=== PATIENT | male | born 1930 | race Caucasian/White ===

== ENCOUNTER 2019-04-21 11:36 | Day surgery (SDC) | payer OTHER ==
[2019-04-21] MEDS ORDERED: Ringers Lactate 1,000 ML IV ONE (12:20)
[2019-04-21] MEDS ORDERED: BUPIVACA 0.5%/EPI 0.0005%/PF 30 ML VIAL ONE (13:30)
[2019-04-21] MEDS ORDERED: LIDOCAINE 1% W/EPI 1:100,000 MDV 50 ML VIAL ONE (13:31)
[2019-04-21] MEDS ORDERED: BACITRACIN OINTMENT 15 GM TUBE TOP ONE (13:31)
[2019-04-21] MEDS ORDERED: FENTANYL CITR 100 MCG/2 ML ONE (13:33)
[2019-04-21] MEDS ORDERED: LIDOCAINE 2% MPF 5 ML VIAL ONE (13:33)
[2019-04-21] MEDS ORDERED: PROPOFOL 200 MG/20 ML VIAL IV ONE (13:33)
[2019-04-21] MEDS ORDERED: ONDANSETRON 4 MG/2 ML VIAL ONE (13:36)
[2019-04-21] MEDS ORDERED: MINERAL OIL, LITE 10 ML VIAL ONE (13:55)
[2019-04-21] MEDS ORDERED: GLYCOPYRROLATE 0.2 MG/ML SYR ONE (14:17)
[2019-04-21] MEDS ORDERED: EPHEDRINE SULF 50 MG/ML VIAL ONE (14:31)
--- NOTE | 2019-04-21 15:43 | P.BOP ---
Preoperative diagnosis: B cheek skin lesions, scalp lesion Postoperative diagnosis: path pending Primary procedure: WLE with layered closure left cheek 22mm Secondary procedure: WLE with layered closure right cheek 19mm Other procedure(s): WLE scalp mass, 8cm; STSG approx 50sq cm Estimated blood loss: 20ml Specimen: B cheek and scalp mass Anesthesia: General Implants: none Transferred to: Recovery Room Condition: Good
--- NOTE | 2019-04-22 03:03 | OP ---
Date of Procedure: 04/21/2019 Surgeon: Cecilia Tariq MD Preoperative Diagnoses: 1. Large scalp mass. 2. Left cheek lesion, clinically suspicious for basal cell carcinoma. 3. Right cheek lesion, suspicious for basal cell carcinoma. Procedures: 1. Excision left cheek mass, total defect 21 x 18 mm, with layered ( intermediate complexity) closure. 2. Right cheek excision of the skin mass, total defect 19 x 15 mm, closure with layered intermediate complexity. 3. Excision of scalp mass, total size of defect 7.7 x 8 cm. 4. Split-thickness skin graft; donor site right thigh, recipient site right scalp. Total surface area approximately 50 cm2. Indication For Procedure: The patient presented with a large scalp mass, referred by Dr. Floyd for evaluation and excision. Concurrently, the patient had bilateral cheek lesions which were clinically suspicious for basal cell carcinoma. The risks, benefits, and alternatives to the procedures were discussed with the patient who agreed to proceed. Description Of Procedure: The patient was brought to the operating room. He was placed under general anesthesia via laryngeal mask airway. The bilateral cheeks and scalp mass were injected with 0.5% Marcaine with epinephrine via local infiltration. A total of 10 mL was used. The scalp and face were prepped with Betadine and draped in a sterile fashion. The right thigh was prepped with Betadine and likewise draped in a sterile fashion for later skin graft collection. The left cheek was addressed first. The left cheek had a prior existing flap scar with remote history of skin cancer removal in an adjacent area. There was a raised lesion with crusting, clinically suspicious for basal versus squamous cell carcinoma. A gross margin of 5 mm was designed around the lesion. The Bovie electrocautery was used to incise through the skin to the layer of the subcutaneous tissue. The specimen was elevated off the subcutaneous tissues using electrocautery. A suture was placed at the superior most aspect of the specimen, marking 12 o'clock, and was sent to Pathology for permanent section. The surrounding tissues were undermined using Bovie electrocautery and the defect was measured at 21 x 18 mm. A layered closure was required including placement of Vicryl deep sutures to bring the wound edges together. A Burow's triangle was excised to allow for a flatter closure. The area of the defect was closed nicely. The skin was then closed using a running 5-0 fast-absorbing gut. Direct pressure was applied to the wound to aid in hemostasis from the skin edges, and attention was turned to the right cheek. On the lower right cheek, a skin lesion clinically suspicious for basal cell carcinoma was identified. A 5 mm gross margin was designed around the lesion and the Bovie electrocautery was used to incise through the skin and subcutaneous tissue. The specimen was elevated off the underlying subcutaneous tissues. A marking suture was placed at the superior most aspect marking 12 o' clock and the specimen was sent to Pathology for permanent section. The defect of the right cheek measured 15 x 19 mm. The surrounding tissues were undermined using Bovie electrocautery and the defect was closed in a layered fashion using 4-0 Vicryl sutures to bring together the deep aspects of the wound and reduce tension. No skin excision was required due to patient's underlying skin laxity, and the skin was closed in a running fashion with 5-0 fast-absorbing gut. Direct pressure was applied to the wound to aid in hemostasis oozing which was minimal. The bilateral cheek wounds were then dressed with Dermabond to provide superficial closure and reduce need for wound care by the patient. Attention was then turned to the scalp. The right parietal scalp contained a large mass with solid and fluctuant areas without evidence of surrounding cellulitis. There were two small areas of superficial ulceration. With direct pressure on the mass, serous-appearing fluid extravasated from the cystic areas. The nature and diagnosis of the mass were uncertain based on clinical appearance alone. A definitive margin was difficult to assess due to no discrete edge to the mass. The mass was circumferentially excised using Bovie electrocautery with a small margin of uninvolved skin circumferentially. The suture was placed at the anteriormost aspect of the mass for later orientation by Pathology. The Bovie electrocautery was used to incise through the skin and subcutaneous tissue as well as the aponeurosis of the scalp. The plane of loose areolar tissue was then identified and the mass seem to separate from the underlying tissues easily in this plane. It was elevated off. Using Bovie electrocautery, several small blood vessels encountered were clamped and tied or cauterized. The central most portion of the mass seems to come through the aponeurosis layer and small amount was noted centrally within the loose areolar tissue. Due to uncertain behavior but slow growth over at least two-year period , a decision was made to forego extensive resection given the uncertain behavior of the mass. The remainder of the mass elevated easily off the aponeurosis and was sent to Pathology for permanent section only. After obtaining hemostasis and tying off small vessels, the defect of the scalp was measured at 7.7 x 8 cm, ovoid, and decision was made to proceed by reconstruction via split-thickness skin graft. A split thickness skin graft was harvested from the patient's right thigh using the Elidia dermatome with a 3 inch width plate. Skin graft length of approximately 8-1/2 to 9 cm was obtained. The skin graft donor site was injected with 7 mL of 0.5% Marcaine with epinephrine to aid in hemostasis as well as postoperative pain control. Direct pressure was applied to the donor site to aid in hemostasis. Due to the curvature of the patient's thigh, the full 3-inch thickness of the skin graft was not achieved. Due to the width of the skin graft, decision was made to perform mechanical pie crusting. The skin graft was carefully placed on the grooved plate and passed with care through the grid. The pie crusted skin graft was then placed over the scalp defect and secured in an eight-point fashion with 2-0 silk sutures. A bolster was formed of Xeroform gauze and placed snugly over the skin graft and secured with 2-0 silk sutures. The skin graft donor site was then covered with Xeroform and the thigh was wrapped with Kerlix and an Philip bandage. The patient's skin was cleaned and dried, and the patient was returned to care of Anesthesia for awakening and extubation in the operating room, which proceeded without difficulty. Complications: None. Disposition: The patient will be discharged home later today in the care of his friend. Follow up with Dr. Tariq in 10 days for bolster removal. Written wound care instructions for all surgical sites will be given to the patient at the time of discharge. RAMBO/SID Voice ID: [id number] Report ID: [id number] RADHA
== END 2019-04-21 17:20 | disposition home or self-care (01) ==
LOC: OR 11:36
PROVIDERS: ATTEND Otolaryngology
PROC: 0JB10ZZ Excision of Face Subcutaneous Tissue and Fascia, Open Approach (ICD-10-PCS; 2019-04-21)
PROC: 0JB00ZZ Excision of Scalp Subcutaneous Tissue and Fascia, Open Approach (ICD-10-PCS; 2019-04-21)
PROC: 0JB00ZZ Excision of Scalp Subcutaneous Tissue and Fascia, Open Approach (ICD-10-PCS; principal; 2019-04-21 13:30)
DX: C44.42 Squamous cell carcinoma of skin of scalp and neck (principal); C44.319 Basal cell carcinoma of skin of other parts of face
CPT/HCPCS: 11624; 15120; 11644 ×2; 12053; 88305; J2704; J3010; J2405

== ENCOUNTER 2019-06-03 07:59 | Inpatient (IN) | payer OTHER ==
[2019-06-03 09:16] LABS: Absolute Lymphocytes (CBC) 0.5 K/uL (0.7-4.9); Basophils % 0.2 % (0-1.3); Hematocrit 44.1 % (39.6-49.0); Lymphocytes % 8.5 % (15.3-44.8); MPV 8.3 fL (7.6-11.3); RBC Red Blood Cell Count 4.76 M/uL (4.33-5.43)
[2019-06-03 09:17] LABS: Protime INR 1.02
[2019-06-03 09:40] LABS: Albumin 3.3 g/dL (3.4-5.0); Bilirubin Direct 0.2 mg/dL (0-0.2); Bilirubin Total 0.8 mg/dL (0.2-1.0); Magnesium 2.1 mg/dL (1.8-2.4); Potassium 3.6 mmol/L (3.5-5.1); Protein, Total 7.6 g/dL (6.4-8.2); Troponin (Emerg Dept Use Only) 0.09 ng/mL (0.0-0.045)
--- NOTE | 2019-06-03 09:45 | RAD REPORT ---
EXAM DESCRIPTION: RAD - Chest Single View - 06/03/2019 8:37 am CLINICAL HISTORY: Fall, weakness, shortness of breath COMPARISON: November 2016 TECHNIQUE: AP portable chest image was obtained 0830 hours . FINDINGS: Patient has a chronically prominent interstitial pattern. Patchy opacification in the uppe r left lung field is present. Pulmonary contusion is possible if the patient had significant left-reva ed chest trauma. An early left upper lobe pneumonia would be a primary consideration as well. No diff use pulmonary edema. No failure or volume overload. Heart size is upper normal accentuated by rotatio n. Vasculature within normal limits. Trachea is midline. No measurable pleural effusion and no pneumo thorax. No acute bony abnormality seen. No acute aortic findings suspected. IMPRESSION: Patchy left upper lobe opacification most likely representing early pneumonia. Pulmonary contusion is possible for the left upper lobe finding if the patient had significant left-s ided chest trauma.
[2019-06-03 09:57] LABS: Urine Bacteria <20 /HPF (NONE SEEN); Urine Culture Reflex Order NOT NEEDED; Urine RBC >50 /HPF (NONE SEEN)
[2019-06-03 09:58] LABS: Urine Yeast PRESENT (NONE SEEN)
--- NOTE | 2019-06-03 10:50 | RAD REPORT ---
EXAM DESCRIPTION: CT - Head Brain Wo Cont - 06/03/2019 10:39 am CLINICAL HISTORY: AMS Fall, head injury, headache COMPARISON: Head Brain Wo Cont dated 01/11/2019 TECHNIQUE: All CT scans are performed using dose optimization technique as appropriate and may inclu de automated exposure control or mA/KV adjustment according to patient size. FINDINGS: No intracranial hemorrhage, hydrocephalus or extra-axial fluid collection.Mild generalized brain atrophy.No areas of brain edema or evidence of midline shift. The paranasal sinuses and mastoids are clear. The calvarium is intact. IMPRESSION: No acute intracranial abnormality.
--- NOTE | 2019-06-03 10:51 | EDPHYS ---
Physician Documentation [facility] Name: Lars Vogt Age: 88 yrs Sex: Male : 1930 Arrival Date: 06/03/2019 Time: 08:09 Bed 7 Private MD: ED Physician Eric Meadows HPI: 06/03 10:02 This 88 yrs old Male presents to ER via EMS with complaints of Fall Injury. kdr 10:02 Details of fall: The patient fell from a height, Bed. EMS reports that the patient fell kdr out of bed last night and that the family was not able to get him back in bed so he was left there all night. This morning, apparently they were still not able to manage him so EMS was called to bring the patient to the ED. He has no focal c/o and moves all extremities without any apparent discomfort. Historical: - Allergies: 08:36 No Known Allergies; ph - Home Meds: 08:36 lisinopril 40 mg oral tab 1 tab once daily [Active]; amlodipine 5 mg tab 1 tab once ph daily [Active]; carvedilol 3.125 mg oral tab 1 tab 2 times per day [Active]; - PMHx: 08:36 High Cholesterol; Hypertension; PVD; ph - PSHx: 08:36 Appendectomy; Tonsillectomy; ph - Immunization history: Last tetanus immunization: unknown. - Social history:: Smoking status: Patient/guardian denies using tobacco. - Ebola Screening: : No symptoms or risks identified at this time. ROS: 10:02 Constitutional: THe patient is a poor historian and is mildly confused kdr 10:52 Unable to obtain ROS due to The patient is very hard of hearing. Generally responds to kdr questions and follows commands. Exam: 10:52 Constitutional: This is a well developed, well nourished patient who is awake, alert, kdr and in no acute distress. 10:52 Eyes: Pupils equal round and reactive to light, extra-ocular motions intact. Lids and lashes normal. Conjunctiva and sclera are non-icteric and not injected. Cornea within normal limits. Periorbital areas with no swelling, redness, or edema. Neck: Trachea midline, no thyromegaly or masses palpated, and no cervical lymphadenopathy. Supple, full range of motion without nuchal rigidity, or vertebral point tenderness. No Meningismus. Chest/axilla: Normal chest wall appearance and motion. Nontender with no deformity. No lesions are appreciated. Cardiovascular: Regular rate and rhythm with a normal S1 and S2. No gallops, murmurs, or rubs. Normal PMI, no JVD. No pulse deficits. Respiratory: Lungs have equal breath sounds bilaterally, clear to auscultation and percussion. No rales, rhonchi or wheezes noted. No increased work of breathing, no retractions or nasal flaring. Abdomen/GI: Soft, non-tender, with normal bowel sounds. No distension or tympany. No guarding or rebound. No evidence of tenderness throughout. Back: No spinal tenderness. No costovertebral tenderness. Full range of motion. 10:52 Head/face: Exam is negative for obvious evidence of injury or deformity, contusion, deformity, erythema, hematoma, raccoon eyes, tenderness, Noted is The patient has a large skin graft area on the right parietal occiptal area that appears to be well healed. 10:52 Skin: Appearance: Temperature: normal temperature, Moisture: dry, petechiae, not noted, ecchymosis, that are mild, and are scattered, flushing, not noted, diaphoresis is not appreciated. 10:52 Neuro: Orientation: to person, place, Not oriented to time, situation. Vital Signs: 08:15 BP 164 / 95; Pulse 91 LA; Resp 21 S; Temp 97.8(TE); Pulse Ox 96% on R/A; Pain 0/10; jl7 09:25 BP 150 / 90; Pulse 85; Resp 18 S; Pulse Ox 94% on R/A; jl7 10:44 BP 125 / 76; Pulse 76; Resp 16 S; Pulse Ox 94% on R/A; jl7 12:12 BP 135 / 91; Pulse 70; Resp 18; Pulse Ox 95% ; Pain 0/10; jl7 Edyta Coma Score: 08:36 Eye Response: spontaneous(4). Verbal Response: confused(4). Motor Response: obeys ph commands(6). Total: 14. Trauma Score (Adult): 08:36 Eye Response: spontaneous(1); Verbal Response: confused(1); Motor Response: obeys ph commands(2); Systolic BP: > 89 mm Hg(4); Respiratory Rate: 10 to 29 per min(4); Edyta Score: 14; Trauma Score: 12 MDM: 10:50 Patient medically screened. kdr 10:52 Data reviewed: vital signs, nurses notes, old medical records, lab test result(s), kdr radiologic studies. Counseling: I had a detailed discussion with the patient and/or guardian regarding: the historical points, exam findings, and any diagnostic results supporting the discharge/admit diagnosis, lab results, radiology results, the need for further work-up and treatment in the hospital. 06/03 08:16 Order name: Basic Metabolic Panel; Complete Time: 09:49 kdr 06/03 08:16 Order name: CBC with Diff; Complete Time: 09:49 kdr 06/03 08:16 Order name: LFT's; Complete Time: 09:49 kdr 06/03 08:16 Order name: Magnesium; Complete Time: 09:49 kdr 06/03 08:16 Order name: NT PRO-BNP; Complete Time: 09:49 kdr 06/03 08:16 Order name: PT-INR; Complete Time: 09:49 kdr 06/03 08:16 Order name: Troponin (emerg Dept Use Only); Complete Time: 09:49 kdr 06/03 08:16 Order name: XRAY Chest (1 view); Complete Time: 09:49 kdr 06/03 08:16 Order name: CK; Complete Time: 09:49 kdr 06/03 09:28 Order name: Urine Culture jb1 06/03 09:28 Order name: Urine Microscopic Only; Complete Time: 10:06 jb1 06/03 09:34 Order name: Urine Dipstick--Ancillary (enter results) bd 06/03 10:28 Order name: Head Brain Wo Cont; Complete Time: 10:51 EDMS 06/03 10:51 Order name: Blood Culture Adult (2) kdr 06/03 08:16 Order name: EKG; Complete Time: 08:18 kdr 06/03 08:16 Order name: Cardiac monitoring; Complete Time: 08:18 kdr 06/03 08:16 Order name: EKG - Nurse/Tech; Complete Time: 08:18 kdr 06/03 08:16 Order name: IV Saline Lock; Complete Time: 08:28 kdr 06/03 08:16 Order name: Labs collected and sent; Complete Time: 08:50 kdr 06/03 08:16 Order name: O2 Per Protocol; Complete Time: 08:18 kdr 06/03 08:16 Order name: O2 Sat Monitoring; Complete Time: 08:18 kdr 06/03 12:13 Order name: Diet Soft; Complete Time: 12:14 jl7 Administered Medications: 12:00 Drug: Rocephin 1 grams Route: IV; Rate: calculated rate; Site: right forearm; jl7 12:03 Follow up: Response: No adverse reaction; IV Status: Completed infusion jl7 12:05 Not Given (Duplicate Order): Rocephin - (cefTRIAXone) 1 grams IVPB once over 30 mins; jl7 (mix in 50 mL NS) 12:06 Drug: Zithromax 500 mg Route: PO; jl7 12:13 Follow up: Response: No adverse reaction jl7 Disposition: 06/03/19 10:50 Hospitalization ordered by Keya Albarran for Observation. Preliminary diagnosis are Weakness, Pneumonia, unspecified organism. - Bed requested for Telemetry/MedSurg (observation). - Status is Observation. jl7 - Condition is Fair. - Problem is new. - Symptoms have improved. UTI on Admission? No Critical care time excluding procedures: 08:22 Critical care time: Bedside Care: 1 minutes, Consultation: 1 minutes, Family kdr Intervention: 1 minutes. Total time: 3 minutes Signatures: Dispatcher [employer] EDMS Shonna Zhu Kevin, MD MD kdr Hermelinda Sanchez RN RN Dominik Dodd RN RN jl7 Corrections: (The following items were deleted from the chart) 12:31 10:50 Hospitalization Ordered by Keya Albarran MD for Observation. Preliminary bd diagnosis is Weakness; Pneumonia, unspecified organism. Bed requested for Telemetry/MedSurg (observation). Status is Observation. Condition is Fair. Problem is new. Symptoms have improved. UTI on Admission? No. kdr 14:05 12:31 06/03/2019 10:50 Hospitalization Ordered by Keya Albarran MD for Observation. jl7 Preliminary diagnosis is Weakness; Pneumonia, unspecified organism. Bed requested for Telemetry/MedSurg (observation). Status is Observation. Condition is Fair. Problem is new. Symptoms have improved. UTI on Admission? No. bd
--- NOTE | 2019-06-03 10:51 | ER ---
Nurse's Notes [facility] Name: Lars Vogt Age: 88 yrs Sex: Male : 1930 Arrival Date: 06/03/2019 Time: 08:09 Bed 7 Private MD: Diagnosis: Weakness;Pneumonia, unspecified organism Presentation: 06/03 08:10 Presenting complaint: EMS states: Family reports that lost footing last night in bathroom and fell, family attempted to help pt up but was unable to, granddaughter did not call EMS until this morning, pt denies pain, no obvious injuries, possible hx of dementia. Care prior to arrival: None. Mechanism of Injury: Fall from standing position. Trauma event details: Injury occurred in the [facility], Injury occurred: at home. Injury occurred: June 03, 2019. 08:10 Acuity: MARIPOSA 3 ph 08:10 Method Of Arrival: EMS: [facility] 08:36 Transition of care: patient was not received from another setting of care. Onset of ph symptoms was June 03, 2019. Risk Assessment: Do you want to hurt yourself or someone else? Patient reports no desire to harm self or others. Initial Sepsis Screen: Does the patient meet any 2 criteria? No. Patient's initial sepsis screen is negative. Does the patient have a suspected source of infection? No. Patient's initial sepsis screen is negative. Trauma Activation: Not Applicable Physician: ED Physician; Name: ; Notified At: ; Arrived At: Physician: General Surgeon; Name: ; Notified At: ; Arrived At: Physician: Radiology; Name: ; Notified At: ; Arrived At: Physician: Respiratory; Name: ; Notified At: ; Arrived At: Physician: Lab; Name: ; Notified At: ; Arrived At: Historical: - Allergies: 08:36 No Known Allergies; ph - Home Meds: 08:36 lisinopril 40 mg oral tab 1 tab once daily [Active]; amlodipine 5 mg tab 1 tab once ph daily [Active]; carvedilol 3.125 mg oral tab 1 tab 2 times per day [Active]; - PMHx: 08:36 High Cholesterol; Hypertension; PVD; ph - PSHx: 08:36 Appendectomy; Tonsillectomy; ph - Immunization history: Last tetanus immunization: unknown. - Social history:: Smoking status: Patient/guardian denies using tobacco. - Ebola Screening: : No symptoms or risks identified at this time. Screenin:15 Abuse screen: Denies threats or abuse. Denies injuries from another. Tuberculosis jl7 screening: No symptoms or risk factors identified. 08:37 Nutritional screening: No deficits noted. Fall Risk Fall in past 12 months (25 points). ph No secondary diagnosis (0 pts). IV access (20 points). Ambulatory Aid- None/Bed Rest/Nurse Assist (0 pts). Gait- Weak (10 pts.). Mental Status- Overestimates/Forgets Limitations (15 pts.). Total [place] Fall Scale indicates High Risk Score (45 or more points). Fall prevention measures have been instituted. Side Rails Up X 2 Placed Close to Nursing Station Frequent Obs/Assessments Occuring As available patient and family educated on Fall Prevention Program and Strategies. Primary Survey: 08:34 NO uncontrolled hemorrhage observed. A: The patient is alert. Airway: patent, No ph supplemental oxygen in use on arrival. Oral cavity: clear, Trachea midline. Breathing/Chest: Respiratory pattern: regular, Respiratory effort: spontaneous, unlabored. Circulation: Skin color: pink, Skin temperature: warm, dry. Disability Alert. Exposure/Environment: All clothing and personal items were removed. Forensic evidence collection is not deemed to be indicated at this time. Items placed in patient belonging bag. There is no evidence of uncontrolled external bleeding. No obvious injuries are noted at this time. A warming method has been applied: A warm blanket has been provided to the patient. 09:00 Reassessment Breathing/Chest Respiratory pattern Regular Respiratory effort Spontaneous jl7 Unlabored Chest inspection Symmetrical. Secondary Survey: 08:34 HEENT: Head No injury/deformity. Musculoskeletal: No deficits noted. No signs and/or ph symptoms reported regarding the musculoskeletal system. Assessment: 08:32 General: Appears in no apparent distress. comfortable, slender, Behavior is calm, ph cooperative. Pain: Denies pain. Neuro: Level of Consciousness is awake, alert, obeys commands, Oriented to person, place, Speech is normal, Denies weakness dizziness, headache. Cardiovascular: Denies chest pain, nausea, shortness of breath, Capillary refill < 3 seconds in bilateral fingers Patient's skin is warm and dry. Respiratory: Airway is patent Respiratory effort is even, unlabored, Respiratory pattern is regular, symmetrical, Breath sounds with wheezes Denies shortness of breath. GI: No signs and/or symptoms were reported involving the gastrointestinal system. Patient currently denies abdominal pain, nausea. Derm: Skin is fragile, is thin, Skin is pink, warm \T\ dry. Derm: skin graft noted to R top of head, appears to have been harvested from R inner thigh, hx of skin cancer. Musculoskeletal: Circulation, motion, and sensation intact. Range of motion: intact in all extremities. 09:25 Reassessment: Patient appears in no apparent distress at this time. Patient and/or ph family updated on plan of care and expected duration. Pain level reassessed. Pt assisted in using urinal, urine sample obtained, pt now resting comfortably with no complaints. 10:30 Reassessment: Patient appears in no apparent distress at this time. No changes from jl7 previously documented assessment. Patient and/or family updated on plan of care and expected duration. Pain level reassessed. Pt laying in bed, denies discomfort at this time. 11:30 Reassessment: Patient appears in no apparent distress at this time. Patient and/or jl7 family updated on plan of care and expected duration. Pain level reassessed. Patient denies pain at this time. Vital Signs: 08:15 BP 164 / 95; Pulse 91 LA; Resp 21 S; Temp 97.8(TE); Pulse Ox 96% on R/A; Pain 0/10; jl7 09:25 BP 150 / 90; Pulse 85; Resp 18 S; Pulse Ox 94% on R/A; jl7 10:44 BP 125 / 76; Pulse 76; Resp 16 S; Pulse Ox 94% on R/A; jl7 12:12 BP 135 / 91; Pulse 70; Resp 18; Pulse Ox 95% ; Pain 0/10; jl7 Edyta Coma Score: 08:36 Eye Response: spontaneous(4). Verbal Response: confused(4). Motor Response: obeys ph commands(6). Total: 14. Trauma Score (Adult): 08:36 Eye Response: spontaneous(1); Verbal Response: confused(1); Motor Response: obeys ph commands(2); Systolic BP: > 89 mm Hg(4); Respiratory Rate: 10 to 29 per min(4); [place] Score: 14; Trauma Score: 12 ED Course: 08:09 Patient arrived in ED. ph 08:10 Eric Meadows MD is Attending Physician. kdr 08:15 Patient has correct armband on for positive identification. Placed in gown. Bed in low jl7 position. Call light in reach. Side rails up X2. 08:15 Arm band placed on Patient placed in an exam room. ph 08:15 equipment monitor phototypesetting on. Pulse ox on. NIBP on. jl7 08:15 Warm blanket given. jl7 08:15 Patient maintains SpO2 saturation greater than 95% on room air. Thermoregulation: warm jl7 blanket given to patient. 08:21 Triage completed. ph 08:37 XRAY Chest (1 view) In Process Unspecified. EDMS 08:50 Dominik Dodd RN is Primary Nurse. jl7 09:00 Initial lab(s) drawn, by al, sent to lab. Inserted saline lock: 22 gauge in right jl7 forearm, using aseptic technique. Blood collected. 09:30 Urine collected: clean catch specimen, cloudy, tea colored. jb1 10:38 Head Brain Wo Cont In Process Unspecified. EDMS 10:50 Keya Albarran MD is Hospitalizing Provider. kdr 12:15 Diet tray ordered. jl7 12:47 Diet tray given. jl7 14:05 No provider procedures requiring assistance completed. Patient admitted, IV remains in jl7 place. intact, No redness/swelling at site. Administered Medications: 12:00 Drug: Rocephin 1 grams Route: IV; Rate: calculated rate; Site: right forearm; jl7 12:03 Follow up: Response: No adverse reaction; IV Status: Completed infusion jl7 12:05 Not Given (Duplicate Order): Rocephin - (cefTRIAXone) 1 grams IVPB once over 30 mins; jl7 (mix in 50 mL NS) 12:06 Drug: Zithromax 500 mg Route: PO; jl7 12:13 Follow up: Response: No adverse reaction jl7 Intake: 08:36 PO: 0ml; Total: 0ml. ph Output: 08:36 Urine: 0ml; Total: 0ml. ph Outcome: 10:50 Decision to Hospitalize by Provider. kdr 14:04 Admitted to Tele accompanied by tech, via stretcher, with chart, Report called to sonya Ross RN 14:04 Condition: stable 14:04 Discharge instructions given to patient, Instructed on the need for admit, Demonstrated understanding of instructions. 14:05 Patient's length of stay was not longer than 2 hours. jl7 14:05 Patient left the ED. jl7 Signatures: Dispatcher [employer] Aryan Mi jb1 Eric Meadows MD MD kdr Hall, Patricia, RN RN ph Leal, Jahala, RN RN jl7
[2019-06-03] MEDS ORDERED: CEFTRIAXONE/SWI 1gm 1 GM/10 ML SYR ONE (11:04)
[2019-06-03] MEDS ORDERED: AZITHROMYCIN 250 MG TAB ONE (11:04)
[2019-06-03 13:03] LABS: Urine Blood 3+ (NEG); Urine Glucose NEGATIVE (NEG); Urine Protein 2+ (NEG); Urine Specific Gravity >1.030 (1.005-1.030); Urine pH 5.5 (5.0-7.0)
[2019-06-03] MEDS ORDERED: ONDANSETRON 4 MG/2 ML VIAL IV PRN (14:15)
--- NOTE | 2019-06-03 14:27 | EKG ---
Test Date: 2019-06-03 Test Time: 08:11:16 Salt Grinder: TIARRA MEASUREMENT RESULTS: Intervals: Rate: 93 UT: 224 QRSD: 160 QT: 404 QTc: 502 Hagan: P: 63 UT: 224 QRS: -53 T: 112 INTERPRETIVE STATEMENTS: Sinus rhythm with 1st degree AV block Left axis deviation Left bundle branch block Abnormal ECG Compared to ECG 12/12/2016 15:01:27 Sinus bradycardia no longer present Electronically Signed On 06-03-19 14:26:33 CDT by Zaki Chavarria
[2019-06-03] MEDS ORDERED: ENOXAPARIN 40 MG/0.4 ML SQ SCH (15:00)
[2019-06-03] MEDS: NA CHLORIDE 0.9% 1,000 ML IV SCH (15:17)
--- NOTE | 2019-06-03 15:17 | P.HP ---
Certification for Inpatient Patient admitted to: Observation With expected LOS: <2 Midnights Patient will require the following post-hospital care: None Practitioner: I am a practitioner with admitting privileges, knowledge of patient current condition, hospital course, and medical plan of care. Services: Services provided to patient in accordance with Admission requirements found in Title 42 Section 412.3 of the Code of Federal Regulations Patient History Date of Service: 06/03/19 Reason for admission: Fall History of Present Illness: 88 y.o M with PMhx of HTN, HLP who presented to the ED after having a fall at the house. Pt's grand-daughter at bedside stated pt went to the Bathroom and had a fall. He however refused to get help to get up and thus stayed there the whole night. In the morning he was still refusing but the granddaughter called EMS to help him get up and sit on the chair. Pt has been having cough and chills for past couple of days. No other complains. He has been also having blood in his urine per grand-daughter. No other complains. Pt is hard of hearing. Allergies No Known Allergies Allergy (Verified 03/29/19 16:36) Home Medications: Amlodipine [Norvasc] 5 mg PO [id number] 03/29/19 Aspirin [Aspirin EC 81 MG] 81 mg PO DAILY 03/29/19 Carvedilol [Coreg] 3.125 mg PO BID 03/29/19 Lisinopril 40 mg PO [id number] 03/29/19 - Past Medical/Surgical History Has patient received pneumonia vaccine in the past: Yes Diabetic: No -: HTN -: hyperlipidemia -: skin graft - Social History Smoking Status: Never smoker Alcohol use: No CD- Drugs: No Caffeine use: No Place of Residence: Home Review of Systems 10-point ROS is otherwise unremarkable Physical Examination - Vital Signs Temperature: 97.8 F Blood Pressure: 135/91 Pulse: 70 Respirations: 18 - Physical Exam General: Alert, In no apparent distress, Oriented x1, Confused Respiratory: Normal air movement, Crackles/rales Cardiovascular: Regular rate/rhythm, Normal S1 S2 Gastrointestinal: Normal bowel sounds, No tenderness Musculoskeletal: No tenderness Integumentary: No rashes Neurological: Normal gait, Normal speech, Normal strength at 5/5 x4 extr, Normal tone, Normal affect Lymphatics: No axilla or inguinal lymphadenopathy - Studies Laboratory Data (last 24 hrs) 06/03/19 08:38: PT 12.0, INR 1.02 06/03/19 08:38: WBC 6.4, Hgb 15.0, Hct 44.1, Plt Count 188 06/03/19 08:38: Sodium 136, Potassium 3.6, BUN 28 H, Creatinine 1.40 H, Glucose 130 H, Magnesium 2.1, Total Bilirubin 0.8, AST 29, ALT 21, Alkaline Phosphatase 75 Assessment and Plan - Problems (Diagnosis) (1) Fall Current Visit: Yes Status: Acute Plan: S.P Mechanical Fall Last night -PT.OT consulted. Awaiting reccs -Will get Hip xray and Head CT done Qualifiers: Encounter type: initial encounter Qualified Code(s): W19.XXXA - Unspecified fall, initial encounter (2) Altered mental state Current Visit: Yes Status: Acute Plan: Most likely toxic Encephalopathy 2.2 to PNA -Currently AAOx2 -Head CT pending at this time -UA, blood culture collected to r.o any other infection Qualifiers: Altered mental status type: unspecified Qualified Code(s): R41.82 - Altered mental status, unspecified (3) PNA (pneumonia) Current Visit: Yes Status: Acute Plan: Xray with Possible PNA on the LLL -Started on IV zosyn -Sputum Culture pending -Will monitor closely Qualifiers: Pneumonia type: due to unspecified organism Laterality: unspecified laterality Lung location: unspecified part of lung Qualified Code(s): J18.9 - Pneumonia, unspecified organism (4) HTN (hypertension) Current Visit: Yes Status: Chronic Plan: Restart Home medication Qualifiers: Hypertension type: essential hypertension Qualified Code(s): I10 - Essential (primary) hypertension (5) Combined hyperlipidemia Current Visit: Yes Status: Chronic Discharge Plan: Home Plan to discharge in: Greater than 2 days - Advance Directives Does patient have a Living Will: No Does patient have a Durable POA for Healthcare: No
[2019-06-03] MEDS ORDERED: TAMSULOSIN 0.4 MG SR CAP PO ONE (16:00)
[2019-06-03 16:17] VITALS: BMI 28.5
--- NOTE | 2019-06-03 16:51 | RAD REPORT ---
EXAM DESCRIPTION: US - CP - 06/03/2019 4:33 pm CLINICAL HISTORY: Syncope Headache, drowsiness COMPARISON: No comparisons TECHNIQUE: Real-time sonographic evaluation of both carotid systems was performed. Doppler interroga tion was performed with waveform tracing bilaterally. FINDINGS: Normal high resistance waveforms are noted in both external carotid arteries. The common c arotid arteries and internal carotid arteries show normal low resistance waveforms. Mild multifocal hard plaquing is seen in both proximal internal carotid arteries. Peak systolic and e nd diastolic velocity values and the ICA/CCA ratios are in the non-hemodynamically significant range. Antegrade flow seen in both vertebral arteries. IMPRESSION: Mild multifocal hard plaquing is seen in both proximal internal carotid arteries. No evidence of a hemodynamically significant stenosis.
[2019-06-03] MEDS ORDERED: PIPER/TAZO/NS 3.375gm 3.375 GM/100 ML BAG IVPB SCH (17:00)
--- NOTE | 2019-06-03 17:35 | RAD REPORT ---
EXAM DESCRIPTION: RAD - Hip Bilateral With Pelvis - 06/03/2019 5:26 pm CLINICAL HISTORY: fALL Fall, pain COMPARISON: <Comparisons> FINDINGS: Mild osteopenia is seen. Cortical irregularity is seen involving the right femoral head/ne ck junction anteriorly, suspicious for nondisplaced fracture.
[2019-06-04] MEDS: NA CHLORIDE 0.9% 1,000 ML IV SCH ×3 (01:00→21:07)
[2019-06-04 05:35] LABS: Absolute Lymphocytes (CBC) 0.8 K/uL (0.7-4.9); Basophils % 0.2 % (0-1.3); Hematocrit 38.6 % (39.6-49.0); Lymphocytes % 15.2 % (15.3-44.8); RBC Red Blood Cell Count 4.21 M/uL (4.33-5.43)
[2019-06-04 05:55] LABS: Albumin 2.8 g/dL (3.4-5.0); Bilirubin Total 0.4 mg/dL (0.2-1.0); Phosphorus 2.9 mg/dL (2.5-4.9); Potassium 3.1 mmol/L (3.5-5.1); Protein, Total 6.1 g/dL (6.4-8.2)
[2019-06-04] MEDS ORDERED: POTASSIUM 25 MEQ EFFERV TAB PO ONE ×3 (08:00→20:14)
[2019-06-04] MEDS: PANTOPRAZOLE 40MG TABLET PO SCH (08:17)
[2019-06-04] MEDS: CEFTRIAXONE/SWI 1gm 1 GM/10 ML SYR IVP SCH (08:18)
[2019-06-04] MEDS: AZITHROMYCIN IV 500 MG in NA CHLORIDE 0.9% 250 ML IVPB SCH (09:27)
--- NOTE | 2019-06-04 10:06 | OP ---
Surgeon: Zaki Chavarria MD This is an brief summary of an echocardiogram report. The report would not be typed until the regula r work week, but Mr. Vogt's ejection fraction is normal. He has left ventricular hypertrophy, dil ated left atrium and mitral annular calcification. No mitral regurgitation or stenosis. There is a very poor left ventricular compliance, probably due to left ventricular hypertrophy and this will ser ve as a temporary report until the official report is typed. RAMBO/SID Voice ID: [id number] Report ID: [id number]
--- NOTE | 2019-06-04 10:52 | P.PN ---
Subjective Date of Service: 06/04/19 Chief Complaint: Fall Pt seen and examined at bedside. Chart Reviewed. Case DW with family at bedside. Pt this AM much more alert than Before. Doing well overall. No c/o Offer. Review of Systems 10-point ROS is otherwise unremarkable Physical Examination - Vital Signs Temperature: 98.2 F Blood Pressure: 133/67 Pulse: 65 Respirations: 18 Pulse Ox (%): 92 - Physical Exam General: Alert, In no apparent distress HEENT: Atraumatic, PERRLA, EOMI Neck: Supple, JVD not distended Respiratory: Normal air movement, Expiratory wheezes, Inspiratory wheezes Cardiovascular: Regular rate/rhythm, Normal S1 S2 Gastrointestinal: Normal bowel sounds, No tenderness Musculoskeletal: No tenderness Integumentary: No rashes Neurological: Normal speech, Normal tone, Normal affect Lymphatics: No axilla or inguinal lymphadenopathy - Studies Microbiology Data (last 24 hrs): 06/03/19 11:12 Blood - Blood Anaerobic Blood Culture - Final Medications List Reviewed: Yes Assessment And Plan - Current Problems (Diagnosis) (1) Fall Current Visit: Yes Status: Acute Plan: S.P Mechanical Fall -Fall precaution given. -PT.OT consulted. Awaiting reccs -Trauma xray with Possibility of Non-displaced Hip fracture and pulmonary Contusion -Will get CT Thorax, Abd and Pelvis at this time Qualifiers: Encounter type: initial encounter Qualified Code(s): W19.XXXA - Unspecified fall, initial encounter (2) Altered mental state Current Visit: Yes Status: Acute Plan: Most likely toxic Encephalopathy 2.2 to PNA vs UTI -Currently AAOx2. Marked improvement today -Head CT negative for acute abnormality. Chronic Brain Atropy noted. -Urine culture negative, Blood Culture pending. Qualifiers: Altered mental status type: unspecified Qualified Code(s): R41.82 - Altered mental status, unspecified (3) PNA (pneumonia) Current Visit: Yes Status: Acute Plan: Xray with Possible PNA on the LLL -Pt with increase wheezing today. -PRN duonebs today -CT thorax ordered -Continue on IV rocephin and azithromycin Qualifiers: Pneumonia type: due to unspecified organism Laterality: unspecified laterality Lung location: unspecified part of lung Qualified Code(s): J18.9 - Pneumonia, unspecified organism (4) HTN (hypertension) Current Visit: Yes Status: Chronic Plan: Restarted Home medication Qualifiers: Hypertension type: essential hypertension Qualified Code(s): I10 - Essential (primary) hypertension (5) Combined hyperlipidemia Current Visit: Yes Status: Chronic - Plan Pending clinical Improvement Discharge Plan: Home Plan to discharge in: Greater than 2 days - Code Status/Comfort Care Code Status Assessed: Yes Critical Care: No
[2019-06-04] MEDS: LEVALBUTEROL 0.63 MG/3 ML NEB NEB PRN ×2 (11:10→17:40)
[2019-06-04] MEDS: IPRATROPIUM BROM 0.5MG/2.5ML NEB PRN ×2 (11:10→17:40)
--- NOTE | 2019-06-04 15:02 | RAD REPORT ---
EXAM DESCRIPTION: CT - Chest Abd Pelvis Wo Con - 06/04/2019 2:22 pm CLINICAL HISTORY: Chest and abdomen pain. R/O FRACTURE COMPARISON: <Comparisons> TECHNIQUE: A limited noncontrast study was performed. All CT scans are performed using dose optimization technique as appropriate and may include automated exposure control or mA/KV adjustment according to patient size. FINDINGS: Poorly defined reticulonodular infiltrate is present in the left upper lobe likely represe nting pneumonia.A small amount of similar infiltrate is seen in the superior segment right lower lobe medially.No pleural or pericardial effusion.No intrathoracic adenopathy. Limited noncontrast assessment of the liver demonstrates no biliary dilatation or focal lesion. The s pleen, pancreas and adrenal glands are within normal limits. Moderate bilateral hydronephrosis and hy droureter, slightly greater on the left is seen with bilateral renal cysts. There appears to be in a regular masslike lesion along the posterior aspect of the urinary bladder measuring 26 mm in thicknes s resulting in this moderate hydronephrosis bilaterally. Some of this may be related to prostatomegal y however a significant portion appears distinct from the prostate. No bowel obstruction, free air, free fluid or abscess. The appendix is not identified as a discrete s tructure, however, no secondary findings of appendicitis are identified. No pathologic lymphadenopa thy in the abdomen or pelvis. Moderate lower lumbar degenerative changes are noted. A displaced fracture is not evident. IMPRESSION: Reticulonodular infiltrate predominately in the left upper lobe suspicious for pneumonia . Masslike thickening in the posterior aspect of the urinary bladder resulting in moderate bilateral hy droureteronephrosis. Advise direct visualization with cystoscopy.
[2019-06-04] MEDS: CARVEDILOL 3.125 MG TAB PO SCH (21:07)
[2019-06-05] MEDS: AMLODIPINE 5 MG TAB PO SCH (04:51)
[2019-06-05] MEDS: LISINOPRIL 20 MG TAB PO SCH (04:51)
[2019-06-05] MEDS: NA CHLORIDE 0.9% 1,000 ML IV SCH ×2 (04:52→16:38)
[2019-06-05 06:29] LABS: Basophils % 0.2 % (0-1.3); Hematocrit 36.9 % (39.6-49.0); Lymphocytes % 16.8 % (15.3-44.8); MPV 8.2 fL (7.6-11.3); RBC Red Blood Cell Count 4.02 M/uL (4.33-5.43)
[2019-06-05 06:46] LABS: Albumin 2.6 g/dL (3.4-5.0); Bilirubin Total 0.3 mg/dL (0.2-1.0); Phosphorus 1.9 mg/dL (2.5-4.9); Potassium 3.6 mmol/L (3.5-5.1); Protein, Total 5.8 g/dL (6.4-8.2)
[2019-06-05] MEDS ORDERED: POTASSIUM 25 MEQ EFFERV TAB PO ONE (08:00)
[2019-06-05] MEDS: IPRATROPIUM BROM 0.5MG/2.5ML NEB PRN ×2 (08:33→13:27)
[2019-06-05] MEDS: LEVALBUTEROL 0.63 MG/3 ML NEB NEB PRN ×2 (08:33→13:27)
[2019-06-05] MEDS: POTASS/SODIUM PHOSPHATE 1 PKT POWD.PACK PO SCH ×3 (09:09→09:41)
[2019-06-05] MEDS: CARVEDILOL 3.125 MG TAB PO SCH ×2 (09:09→21:07)
[2019-06-05] MEDS: CEFTRIAXONE/SWI 1gm 1 GM/10 ML SYR IVP SCH (09:10)
[2019-06-05] MEDS: PANTOPRAZOLE 40MG TABLET PO SCH (09:10)
[2019-06-05] MEDS: ASPIRIN EC 81 MG TAB PO SCH (09:10)
[2019-06-05] MEDS: AZITHROMYCIN IV 500 MG in NA CHLORIDE 0.9% 250 ML IVPB SCH (09:39)
--- NOTE | 2019-06-05 11:31 | P.PN ---
Subjective Date of Service: 06/05/19 Chief Complaint: Fall Pt seen and examined at bedside. Chart Reviewed. Case DW with family at bedside. Pt this AM much more alert than Before. States that he is worried as "Tia" is not here and she has taken his phone, car and money. He also states she had him in a room with just bathtub and camode, then [employer] came to help him and took him home. Charge nurse told to call APS Review of Systems 10-point ROS is otherwise unremarkable Physical Examination - Vital Signs Temperature: 97.8 F Blood Pressure: 132/72 Pulse: 69 Respirations: 18 Pulse Ox (%): 95 - Physical Exam General: Alert, In no apparent distress, Oriented x2 HEENT: Atraumatic, PERRLA, EOMI Neck: Supple, JVD not distended Respiratory: Clear to auscultation bilaterally, Normal air movement Cardiovascular: Regular rate/rhythm, Normal S1 S2 Gastrointestinal: Normal bowel sounds, No tenderness Musculoskeletal: No tenderness Integumentary: No rashes Neurological: Normal speech, Normal tone, Normal affect Lymphatics: No axilla or inguinal lymphadenopathy - Studies Microbiology Data (last 24 hrs): 06/03/19 09:25 Clean Catch Urine [place] Count - Final <10,000 CFU/ML. 06/03/19 09:25 Clean Catch Urine - Final MIXED ANGELA. 06/03/19 11:12 Blood - Blood Anaerobic Blood Culture - Final Medications List Reviewed: Yes Assessment And Plan - Current Problems (Diagnosis) (1) Fall Current Visit: Yes Status: Acute Plan: S.P Mechanical Fall -Fall precaution given. -PT.OT consulted. reccs Appreciated -Trauma xray with Possibility of Non-displaced Hip fracture and pulmonary Contusion -CT Thorax, Abd and Pelvis done Bladder mass Qualifiers: Encounter type: initial encounter Qualified Code(s): W19.XXXA - Unspecified fall, initial encounter (2) Altered mental state Current Visit: Yes Status: Acute Plan: Most likely toxic Encephalopathy 2.2 to PNA vs UTI -Currently AAOx2. Marked improvement today -Head CT negative for acute abnormality. Chronic Brain Atropy noted. -Urine culture negative, Blood Culture pending. Qualifiers: Altered mental status type: unspecified Qualified Code(s): R41.82 - Altered mental status, unspecified (3) PNA (pneumonia) Current Visit: Yes Status: Acute Plan: Xray with Possible PNA on the LLL -Pt with increase wheezing today. -PRN duonebs today -CT thorax with LLL PNA -Continue on IV rocephin and azithromycin Qualifiers: Pneumonia type: due to unspecified organism Laterality: unspecified laterality Lung location: unspecified part of lung Qualified Code(s): J18.9 - Pneumonia, unspecified organism (4) HTN (hypertension) Current Visit: Yes Status: Chronic Plan: Restarted Home medication Qualifiers: Hypertension type: essential hypertension Qualified Code(s): I10 - Essential (primary) hypertension (5) Combined hyperlipidemia Current Visit: Yes Status: Chronic (6) Bladder mass Current Visit: Yes Status: Acute Plan: Urology consulted. Awaiting reccs - Cunningham Catheter at this time - Plan Pending clinical Improvement. urology consult for bladder mass Discharge Plan: Home Plan to discharge in: Greater than 2 days - Code Status/Comfort Care Code Status Assessed: Yes Critical Care: No
[2019-06-05 18:53] LABS: Phosphorus 2.4 mg/dL (2.5-4.9); Potassium 4.2 mmol/L (3.5-5.1)
[2019-06-06] MEDS: NA CHLORIDE 0.9% 1,000 ML IV SCH ×3 (02:24→21:18)
[2019-06-06] MEDS: AMLODIPINE 5 MG TAB PO SCH (05:31)
[2019-06-06] MEDS: LISINOPRIL 20 MG TAB PO SCH (05:31)
[2019-06-06 06:25] LABS: Bilirubin Total 0.6 mg/dL (0.2-1.0); Phosphorus 2.8 mg/dL (2.5-4.9); Potassium 4.3 mmol/L (3.5-5.1); Protein, Total 6.7 g/dL (6.4-8.2)
[2019-06-06 06:26] LABS: Absolute Lymphocytes (CBC) 1.1 K/uL (0.7-4.9); Basophils % 0.2 % (0-1.3); Hematocrit 40.4 % (39.6-49.0); Lymphocytes % 16.4 % (15.3-44.8); MPV 8.2 fL (7.6-11.3)
--- NOTE | 2019-06-06 06:45 | ECHO ---
HEIGHT: 5 ft 8 in WEIGHT: 188 lb 0 oz DATE OF STUDY: 06/03/[address]: Keya Albarran MD 2-DIMENSIONAL: YES M.MODE: YES DOPPLER: YES COLOR FLOW: YES TDS: YES PORTABLE: DEFINITY: BUBBLE STUDY: DIAGNOSIS: SYNCOPE CARDIAC HISTORY: CATHERIZATION: NO SURGERY: NO PROSTHETIC VALVE: NO PACEMAKER: NO MEASUREMENTS (cm) DIASTOLIC (NORMALS) SYSTOLIC (NORMALS) IVSd 1.4 (0.6-1.2) LA Diam (1.9-4.0) LVEF 60-69% LVIDd 3.9 (3.5-5.7) LVIDs 2.8 (2.0-3.5) %FS 28% LVPWd 1.4 (0.6-1.2) Ao Diam 2.7 (2.0-3.7) 2 DIMENSIONAL ASSESSMENT: RIGHT ATRIUM: NORMAL LEFT ATRIUM: DILATED RIGHT VENTRICLE: NORMAL LEFT VENTRICLE: LEFT VENTRICULAR HYPERTROPHY TRICUSPID VALVE: NORMAL MITRAL VALVE: MITRAL ANNULAR CALCIFICATION PULMONIC VALVE: NORMAL AORTIC VALVE: NORMAL PERICARDIAL EFFUSION: NONE AORTIC ROOT: NORMAL LEFT VENTRICULAR WALL MOTION: NORMAL DOPPLER/COLOR FLOW: IMPAIRED LEFT VENTRICULAR RELAXATION COMMENTS: NORMAL LEFT VENTRICULAR EJECTION FRACTION. LEFT VENTRICULAR HYPERTROPHY. DILATED LEFT ATRIUM. MITRAL ANNULAR CALCIFICATION. IMPAIRED LEFT VENTRICULAR RELAXATION. TECHNOLOGIST: JOHNNIE RODRIGUEZ
--- NOTE | 2019-06-06 10:53 | P.PN ---
Subjective Date of Service: 06/06/19 Chief Complaint: Fall Pt seen and examined at bedside. No family at bedside. Chart Reviewed and case discussed with nursing staff and social work. Patient alert this morning, the continues to have some episodes of confusion. He does not seem to remember why he is here in the hospital this morning. Adult protective Services has been called for this patient, social work on board Review of Systems 10-point ROS is otherwise unremarkable Physical Examination - Vital Signs Temperature: 97.6 F Blood Pressure: 138/80 Pulse: 78 Respirations: 18 Pulse Ox (%): 96 - Physical Exam General: Alert, In no apparent distress, Oriented x2, Confused HEENT: Atraumatic, PERRLA, EOMI Neck: Supple, JVD not distended Respiratory: Clear to auscultation bilaterally, Normal air movement Cardiovascular: Regular rate/rhythm, Normal S1 S2 Gastrointestinal: Normal bowel sounds, No tenderness Musculoskeletal: No tenderness Integumentary: No rashes Neurological: Normal speech, Normal tone, Normal affect Lymphatics: No axilla or inguinal lymphadenopathy - Studies Microbiology Data (last 24 hrs): 06/03/19 09:25 Clean Catch Urine [place] Count - Final <10,000 CFU/ML. 06/03/19 09:25 Clean Catch Urine - Final MIXED ANGELA. Medications List Reviewed: Yes Assessment And Plan - Current Problems (Diagnosis) (1) Fall Current Visit: Yes Status: Acute Plan: S.P Mechanical Fall -Fall precautions. -PT/OT consulted. Recommendations Appreciated -Trauma xray with Possibility of Non-displaced Hip fracture and pulmonary Contusion -CT Thorax, Abd and Pelvis, with done Bladder mass -patient may benefit from further physical therapy/rehab. Rehab consult placed Qualifiers: Encounter type: initial encounter Qualified Code(s): W19.XXXA - Unspecified fall, initial encounter (2) Altered mental state Current Visit: Yes Status: Acute Plan: Improving. -Most likely toxic Encephalopathy 2/2 to PNA vs UTI -Currently AAOx2. Continues to have improvement in mentation but with episodes of confusion still -Head CT negative for acute abnormality. Chronic Brain Atropy noted. -Urine culture negative, Blood Culture no growth for 24 hr, pending Qualifiers: Altered mental status type: unspecified Qualified Code(s): R41.82 - Altered mental status, unspecified (3) PNA (pneumonia) Current Visit: Yes Status: Acute Plan: Xray with Possible PNA on the LLL -PRN duonebs -CT thorax with LLL PNA -Continue on IV rocephin and azithromycin for now. Repeat chest x-ray tomorrow. Will deescalate to oral azithromycin once clinically improved Qualifiers: Pneumonia type: due to unspecified organism Laterality: unspecified laterality Lung location: unspecified part of lung Qualified Code(s): J18.9 - Pneumonia, unspecified organism (4) Bladder mass Current Visit: Yes Status: Acute Plan: Urology consulted. Awaiting recommendations - Cunningham Catheter at this time (5) HTN (hypertension) Current Visit: No Status: Chronic Plan: Continue home medications. - continue to monitor blood pressures and adjust medications as needed Qualifiers: Hypertension type: essential hypertension Qualified Code(s): I10 - Essential (primary) hypertension (6) Combined hyperlipidemia Current Visit: No Status: Chronic - Plan Disposition: Pending clinical improvement, urology recommendations. Inpatient rehab consult placed, pending evaluation.
[2019-06-06] MEDS: PANTOPRAZOLE 40MG TABLET PO SCH (10:57)
[2019-06-06] MEDS: ASPIRIN EC 81 MG TAB PO SCH (10:57)
[2019-06-06] MEDS: CEFTRIAXONE/SWI 1gm 1 GM/10 ML SYR IVP SCH (10:58)
[2019-06-06] MEDS: CARVEDILOL 3.125 MG TAB PO SCH ×2 (10:58→21:18)
[2019-06-06] MEDS: AZITHROMYCIN IV 500 MG in NA CHLORIDE 0.9% 250 ML IVPB SCH (10:59)
--- NOTE | 2019-06-06 16:36 | CON ---
History Of Present Illness: An 88-year-old gentleman who has a history of squamous cell cancer, basal cell cancer, apparently squamous cell cancers invasive , positive margins, just had a huge operation by ENT with skin graft and is possible scheduled for 6 months' radiation with poor prognosis, possible 6 months to live. I was called because he had a bladder mass that was seen in the bladder. The patient says he has been having some gross hematuria for 2 years now. It is a huge mass in the bladder that is causing compression or invasion, most likely muscle invasive of the bladder, causing bilateral hydroureteronephrosis. This carries a poor prognosis at his age. Debate is whether it is even marie to do a biopsy knowing that what is going on already and with his poor prognosis from squamous cell cancer and his poor prognosis from muscle invasive bladder cancer, the most likely recommendation for this gentleman is hospice. I do not believe there is anyone in the [place] area that will do a radical cystoprostatectomy and ileal conduit on this patient. I do not believe he will make it out of the hospital. I think the best thing for him now is comfort measures. Allergies: NO KNOWN DRUG ALLERGIES. Home Medication: Amlodipine, aspirin, carvedilol, lisinopril. Past Medical History: Hypertension, hyperlipidemia, skin graft, squamous cell cancer, basal cell cancer. Social History: He smoked in the past. Alcohol, none. No caffeine. Resides at home with Beti who takes care of him, Brittney has the power of business attorney; she lives out of critical access hospital. Review of Systems: Ten-point review of systems otherwise unremarkable. Patient is a poor historian. Physical Examination: Vital Signs: Afebrile, stable. General: Alert, oriented x1. Seems to have some dementia. Respiratory: Clear. Cardiovascular: S1, S2. Gastrointestinal: Soft. Musculoskeletal: No tenderness. Skin: No rashes. Neurologic: Normal gait. Lymphatics: No lymphadenopathy. Laboratory Data: Laboratory reviewed. His GFR is now 77; when he came in, it was 48, it can be due to some hydration. White count normal. UA did show some blood in the urine. Assessment And Plan: Patient status post fall. Reason for admission is status post recent skin resection from the head for squamous cell cancer that was possibly invasive with poor prognosis. Also, he is status post some gross hematuria and CAT scan revealed bladder mass with bilateral hydroureteronephrosis, very highly suggestive of muscle invasive bladder cancer. The option for muscle invasive bladder cancer is radical cystectomy with urinary diversion or chemo on radiation. However, in this gentleman at his age and medical problems and other types of cancers, I believe the best thing for him is hospice. That is my recommendation. Thank you very much. KELSI/SID Voice ID: [id number] Report ID: [id number] RADHA
[2019-06-07] MEDS: AMLODIPINE 5 MG TAB PO SCH (05:27)
[2019-06-07] MEDS: LISINOPRIL 20 MG TAB PO SCH (05:27)
[2019-06-07] MEDS: PANTOPRAZOLE 40MG TABLET PO SCH (05:28)
[2019-06-07] MEDS: NA CHLORIDE 0.9% 1,000 ML IV SCH ×3 (05:35→18:13)
[2019-06-07 06:35] LABS: Basophils % 0.3 % (0-1.3); Hematocrit 37.8 % (39.6-49.0); MPV 8.3 fL (7.6-11.3); RBC Red Blood Cell Count 4.09 M/uL (4.33-5.43)
[2019-06-07 06:46] LABS: Albumin 2.7 g/dL (3.4-5.0); Bilirubin Total 0.6 mg/dL (0.2-1.0); Phosphorus 2.6 mg/dL (2.5-4.9); Potassium 4.4 mmol/L (3.5-5.1); Protein, Total 6.2 g/dL (6.4-8.2)
[2019-06-07] MEDS: CEFTRIAXONE/SWI 1gm 1 GM/10 ML SYR IVP SCH (08:19)
[2019-06-07] MEDS: ASPIRIN EC 81 MG TAB PO SCH (08:19)
[2019-06-07] MEDS: CARVEDILOL 3.125 MG TAB PO SCH ×2 (08:19→20:46)
[2019-06-07] MEDS: FLUCONAZOLE 100 MG TAB PO SCH (08:19)
[2019-06-07] MEDS: AZITHROMYCIN IV 500 MG in NA CHLORIDE 0.9% 250 ML IVPB SCH (09:19)
[2019-06-07] MEDS ORDERED: LEVALBUTEROL 0.63 MG/3 ML NEB NEB SCH (12:00)
[2019-06-07] MEDS ORDERED: IPRATROPIUM BROM 0.5MG/2.5ML NEB SCH (12:00)
--- NOTE | 2019-06-07 12:33 | P.PN ---
Subjective Date of Service: 06/07/19 Chief Complaint: Fall Subjective: Improving Pt seen and examined at bedside. No family at bedside. Chart Reviewed and case discussed with nursing staff and social work. Patient alert and awake, oriented x3 this morning. Adult protective Services has been called for this patient, social work on board Review of Systems 10-point ROS is otherwise unremarkable Physical Examination - Vital Signs Temperature: 97.3 F Blood Pressure: 117/65 Pulse: 63 Respirations: 17 Pulse Ox (%): 98 - Physical Exam General: Alert, In no apparent distress, Oriented x3 HEENT: Atraumatic, PERRLA, EOMI Neck: Supple, JVD not distended Respiratory: Clear to auscultation bilaterally, Normal air movement Cardiovascular: Regular rate/rhythm, Normal S1 S2 Gastrointestinal: Normal bowel sounds, No tenderness Musculoskeletal: No tenderness Integumentary: No rashes Neurological: Normal speech, Normal tone, Normal affect Lymphatics: No axilla or inguinal lymphadenopathy - Studies Medications List Reviewed: Yes Assessment And Plan - Current Problems (Diagnosis) (1) Fall Current Visit: Yes Status: Acute Plan: S.P Mechanical Fall -Fall precautions. -PT/OT consulted. Recommendations Appreciated -Trauma xray with Possibility of Non-displaced Hip fracture and pulmonary Contusion -CT Thorax, Abd and Pelvis, with done Bladder mass -patient may benefit from further physical therapy/rehab. Rehab consult placed , which was denied. Social work on board, assisted facility referral placed. Qualifiers: Encounter type: initial encounter Qualified Code(s): W19.XXXA - Unspecified fall, initial encounter (2) Altered mental state Current Visit: Yes Status: Acute Plan: Improving. -Most likely toxic Encephalopathy 2/2 to PNA vs UTI -Currently AAOx3. -Head CT negative for acute abnormality. Chronic Brain Atropy noted. -Urine culture negative, Blood Culture no growth for 24 hr, pending Qualifiers: Altered mental status type: unspecified Qualified Code(s): R41.82 - Altered mental status, unspecified (3) PNA (pneumonia) Current Visit: Yes Status: Acute Plan: Xray with Possible PNA on the LLL -PRN duonebs -CT thorax with LLL PNA -Continue on IV rocephin and azithromycin for now. Repeat chest x-ray tomorrow. Will deescalate to oral azithromycin once clinically improved Qualifiers: Pneumonia type: due to unspecified organism Laterality: unspecified laterality Lung location: unspecified part of lung Qualified Code(s): J18.9 - Pneumonia, unspecified organism (4) Bladder mass Current Visit: Yes Status: Acute Plan: Urology consulted. Recommendations appreciated. Mass highly suggestive of muscle invasive bladder cancer. Hot over this patient is a poor candidate for any surgical or chemo/radiation treatment due to his change and underlying medical problems. I did discuss with patient, unsure if he understands the information. Working on getting medical [id number] paperwork to discuss further. - Cunningham Catheter at this time (5) HTN (hypertension) Current Visit: No Status: Chronic Plan: Continue home medications. - continue to monitor blood pressures and adjust medications as needed Qualifiers: Hypertension type: essential hypertension Qualified Code(s): I10 - Essential (primary) hypertension (6) Combined hyperlipidemia Current Visit: No Status: Chronic - Plan Disposition: Pending clinical improvement. Pending assisted facility placement. Discharge Plan: [facility]
[2019-06-07] MEDS: LEVALBUTEROL 0.63 MG/3 ML NEB NEB SCH ×2 (13:15→19:40)
[2019-06-07] MEDS: IPRATROPIUM BROM 0.5MG/2.5ML NEB SCH ×2 (13:15→19:40)
--- NOTE | 2019-06-07 14:16 | PN ---
Subjective: Patient is stable, status post fall. He has squamous cell carcinoma with positive yunier ns in his scalp for possible radiation and poor prognosis. He also has a bladder mass that is causin g bilateral hydroureteronephrosis, most likely muscle-invasive TCC. I came by the room today to meet Tia who was supposed to meet me this morning; I came by twice, she was not there, to discuss any fur ther expectations. The plan for this patient is hospice care due to his age, medical condition, and diagnosis of tumors. KELSI/SID Voice ID: [id number] Report ID: [id number]
[2019-06-08] MEDS: IPRATROPIUM BROM 0.5MG/2.5ML NEB SCH ×4 (01:35→21:50)
[2019-06-08] MEDS: LEVALBUTEROL 0.63 MG/3 ML NEB NEB SCH ×4 (01:35→20:00)
[2019-06-08] MEDS: NA CHLORIDE 0.9% 1,000 ML IV SCH (04:15)
[2019-06-08] MEDS: AMLODIPINE 5 MG TAB PO SCH (05:22)
[2019-06-08] MEDS: LISINOPRIL 20 MG TAB PO SCH (05:23)
[2019-06-08] MEDS: PANTOPRAZOLE 40MG TABLET PO SCH (05:23)
[2019-06-08 07:05] LABS: Absolute Lymphocytes (CBC) 1.1 K/uL (0.7-4.9); Basophils % 0.6 % (0-1.3); Hematocrit 39.3 % (39.6-49.0); Lymphocytes % 14.6 % (15.3-44.8); MPV 8.7 fL (7.6-11.3); RBC Red Blood Cell Count 4.31 M/uL (4.33-5.43)
[2019-06-08 07:36] LABS: Bilirubin Total 0.6 mg/dL (0.2-1.0); Magnesium 2.1 mg/dL (1.8-2.4); Phosphorus 2.3 mg/dL (2.5-4.9); Potassium 3.9 mmol/L (3.5-5.1); Protein, Total 6.9 g/dL (6.4-8.2)
[2019-06-08] MEDS: FLUCONAZOLE 100 MG TAB PO SCH (09:19)
[2019-06-08] MEDS: CEFTRIAXONE/SWI 1gm 1 GM/10 ML SYR IVP SCH (09:19)
[2019-06-08] MEDS: ASPIRIN EC 81 MG TAB PO SCH (09:19)
[2019-06-08] MEDS: CARVEDILOL 3.125 MG TAB PO SCH ×2 (09:20→21:03)
[2019-06-08] MEDS: POTASS/SODIUM PHOSPHATE 1 PKT POWD.PACK PO SCH ×3 (09:21→12:35)
[2019-06-08] MEDS: AZITHROMYCIN IV 500 MG in NA CHLORIDE 0.9% 250 ML IVPB SCH (09:55)
[2019-06-08] MEDS ORDERED: TRAMADOL HCL 50 MG TAB PO PRN (12:18)
--- NOTE | 2019-06-08 12:18 | P.PN ---
Subjective Date of Service: 06/08/19 Chief Complaint: Fall Subjective: Improving Pt seen and examined at bedside. Chart Reviewed and case discussed with nursing staff and social work. Great granddaughter at bedside. Patient alert and awake, oriented x3 this morning. Continues to have episodes of confusion. Adult protective Services has been called for this patient, social work on board Review of Systems 10-point ROS is otherwise unremarkable Physical Examination - Vital Signs Temperature: 97.7 F Blood Pressure: 166/89 Pulse: 87 Respirations: 18 Pulse Ox (%): 96 - Physical Exam General: Alert, In no apparent distress, Oriented x3 HEENT: Atraumatic, PERRLA, EOMI Neck: Supple, JVD not distended Respiratory: Clear to auscultation bilaterally, Normal air movement Cardiovascular: Regular rate/rhythm, Normal S1 S2 Gastrointestinal: Normal bowel sounds, No tenderness Musculoskeletal: No tenderness Integumentary: No rashes Neurological: Normal speech, Normal tone, Normal affect Lymphatics: No axilla or inguinal lymphadenopathy - Studies Microbiology Data (last 24 hrs): 06/03/19 11:28 Blood - Blood Aerobic Blood Culture - Final No growth in 5 days. 06/03/19 11:28 Blood - Blood Anaerobic Blood Culture - Final No growth in 5 days. 06/03/19 11:12 Blood - Blood Aerobic Blood Culture - Final No growth in 5 days. 06/03/19 11:12 Blood - Blood Anaerobic Blood Culture - Final Medications List Reviewed: Yes Assessment And Plan - Current Problems (Diagnosis) (1) Fall Current Visit: Yes Status: Acute Plan: S.P Mechanical Fall -Fall precautions. -PT/OT consulted. Recommendations Appreciated -Trauma xray with Possibility of Non-displaced Hip fracture and pulmonary Contusion -CT Thorax, Abd and Pelvis, with done Bladder mass -patient may benefit from further physical therapy/rehab. Rehab consult placed , which was denied. Social work on board, long term facility referral placed. Patient currently refusing long term facility. -potential hospice, social work aware Qualifiers: Encounter type: initial encounter Qualified Code(s): W19.XXXA - Unspecified fall, initial encounter (2) Altered mental state Current Visit: Yes Status: Acute Plan: Mentation seems to be back to baseline. -Most likely toxic Encephalopathy 2/2 to PNA vs UTI -Currently AAOx3. -Head CT negative for acute abnormality. Chronic Brain Atrophy noted. -Urine culture negative, Blood Culture no growth for 24 hr, pending Qualifiers: Altered mental status type: unspecified Qualified Code(s): R41.82 - Altered mental status, unspecified (3) PNA (pneumonia) Current Visit: Yes Status: Acute Plan: Xray with Possible PNA on the LLL -PRN duonebs -CT thorax with LLL PNA -converted IV antibiotics to oral azithromycin. He will complete a 10 day course Qualifiers: Pneumonia type: due to unspecified organism Laterality: unspecified laterality Lung location: unspecified part of lung Qualified Code(s): J18.9 - Pneumonia, unspecified organism (4) Bladder mass Current Visit: Yes Status: Acute Plan: Urology consulted. Recommendations appreciated. Mass highly suggestive of muscle invasive bladder cancer. This patient is a poor candidate for any surgical or chemo/radiation treatment due to his age and underlying medical problems. I did discuss with patient, unsure if he understands the information. Hospice discussion today with patient, great-granddaughter at bedside. Social work on board, pending hospice evaluation - Cunningham Catheter at this time (5) HTN (hypertension) Current Visit: No Status: Chronic Plan: Continue home medications. - continue to monitor blood pressures and adjust medications as needed Qualifiers: Hypertension type: essential hypertension Qualified Code(s): I10 - Essential (primary) hypertension (6) Combined hyperlipidemia Current Visit: No Status: Chronic - Plan Disposition: Pending clinical improvement. Pending hospice evaluation and set up. Potential discharge on hospice home in the next 24 hr if family agrees and everything set up
[2019-06-08] MEDS: TAMSULOSIN 0.4 MG SR CAP PO SCH (14:13)
--- NOTE | 2019-06-08 18:26 | PN ---
An 88-year-old gentleman with invasive squamous cell carcinoma of the scalp and most likely muscle invasive bladder tumor with bilateral obstruction as the most likely diagnosis came by. Granddaughter, Hyun, who is a friend, she did not show up yesterday morning between 8 and 12. Today, I was text by the office that she is here. She wants to meet. I told them I would be here during lunchtime. When I came here during my lunchtime and heard that she left upset, we have called her and left messages to see if she wants to talk some more, but my plan has not changed for this patient, still the same. He will be a good hospice candidate. While I was leaving Tia showed up. She had no questions and no other concerns. She understands the prognosis. KELSI/SID Voice ID: [id number] Report ID: [id number] RADHA
[2019-06-09] MEDS: LEVALBUTEROL 0.63 MG/3 ML NEB NEB SCH ×2 (01:50→09:05)
[2019-06-09] MEDS: IPRATROPIUM BROM 0.5MG/2.5ML NEB SCH ×2 (01:50→09:05)
[2019-06-09 05:16] VITALS: O2SAT 94
[2019-06-09 05:58] LABS: Potassium 3.7 mmol/L (3.5-5.1)
[2019-06-09] MEDS: AMLODIPINE 5 MG TAB PO SCH (06:25)
[2019-06-09] MEDS: LISINOPRIL 20 MG TAB PO SCH (06:26)
[2019-06-09] MEDS: CARVEDILOL 3.125 MG TAB PO SCH (08:07)
[2019-06-09] MEDS: PANTOPRAZOLE 40MG TABLET PO SCH (08:07)
[2019-06-09] MEDS: ASPIRIN EC 81 MG TAB PO SCH (08:08)
[2019-06-09] MEDS: TAMSULOSIN 0.4 MG SR CAP PO SCH (08:08)
[2019-06-09] MEDS ORDERED: AZITHROMYCIN 250 MG TAB PO SCH (09:00)
[2019-06-09] MEDS ORDERED: POTASSIUM CL SA 10 MEQ TAB PO ONE (09:00)
[2019-06-09 14:07] VITALS: BP 121/68; TEMP 98
--- NOTE | 2019-06-09 15:46 | P.DS ---
Admission Date: 06/04/19 Discharge Date: 06/09/19 Disposition: HOSPICE-HOME Discharge Condition: FAIR Reason for Admission: Fall Consultations: Dr. Gallegos - Problems (1) Fall Status: Acute Qualifiers: Encounter type: initial encounter Qualified Code(s): W19.XXXA - Unspecified fall, initial encounter (2) Altered mental state Status: Acute Qualifiers: Altered mental status type: unspecified Qualified Code(s): R41.82 - Altered mental status, unspecified (3) PNA (pneumonia) Status: Acute Qualifiers: Pneumonia type: due to unspecified organism Laterality: unspecified laterality Lung location: unspecified part of lung Qualified Code(s): J18.9 - Pneumonia, unspecified organism (4) Bladder mass Status: Acute (5) HTN (hypertension) Status: Chronic Qualifiers: Hypertension type: essential hypertension Qualified Code(s): I10 - Essential (primary) hypertension (6) Combined hyperlipidemia Status: Chronic Brief History of Present Illness: 88 y.o M with PMhx of HTN, HLP who presented to the ED after having a fall at the house. Pt's grand-daughter at bedside stated pt went to the Bathroom and had a fall. He however refused to get help to get up and thus stayed there the whole night. In the morning he was still refusing but the granddaughter called EMS to help him get up and sit on the chair. Pt has been having cough and chills for past couple of days. No other complains. He has been also having blood in his urine per grand-daughter. No other complains. Pt is hard of hearing. Hospital Course: Patient was admitted for a fall, altered mental status and hematuria. Trauma xray was with Possibility of Non-displaced Hip fracture and pulmonary Contusion and CT Thorax, Abd and Pelvis, with done Bladder mass. PT/OT was consulted. Dr. Gallegos was consulted for a bladder mass. He was found to have a bladder mass , Mass highly suggestive of muscle invasive bladder cancer. This patient is a poor candidate for any surgical or chemo/radiation treatment due to his age and underlying medical problems. I did discuss with patient, unsure if he understood the information. Hospice was discussed with patient and great grand daughter at bedside. Patient and family agreed to home with hospice. [facility] hospice nurse discussed with family, equipment was set up. at home and patient was discharged home on hospice. Vital Signs/Physical Exam: Temp Pulse Resp BP Pulse Ox 98 F 66 18 121/68 94 06/09/19 12:00 06/09/19 12:00 06/09/19 12:00 06/09/19 12:00 06/09/19 12:00 General: Alert, In no apparent distress, Cooperative, Other (elderly) HEENT: Atraumatic, PERRLA, EOMI Neck: Supple, JVD not distended Respiratory: Clear to auscultation bilaterally, Normal air movement Cardiovascular: Regular rate/rhythm, Normal S1 S2 Gastrointestinal: Normal bowel sounds, No tenderness Musculoskeletal: No tenderness Integumentary: No rashes Neurological: Normal speech, Normal tone, Normal affect Lymphatics: No axilla or inguinal lymphadenopathy Laboratory Data at Discharge: WBC 7.8 K/uL (4.3-10.9) D 06/08/19 05:41 Hgb 13.6 g/dL (13.6-17.9) 06/08/19 05:41 Hct 39.3 % (39.6-49.0) L 06/08/19 05:41 Plt Count 221 K/uL (152-406) 06/08/19 05:41 PT 12.0 SECONDS (9.5-12.5) 06/03/19 08:38 INR 1.02 06/03/19 08:38 Sodium 140 mmol/L (136-145) 06/09/19 05:21 Potassium 3.7 mmol/L (3.5-5.1) 06/09/19 05:21 BUN 16 mg/dL (7-18) 06/09/19 05:21 Creatinine 0.95 mg/dL (0.55-1.3) 06/09/19 05:21 Glucose 91 mg/dL (74-106) 06/09/19 05:21 Phosphorus 3.0 mg/dL (2.5-4.9) 06/09/19 05:21 Magnesium 2.1 mg/dL (1.8-2.4) 06/08/19 05:41 Total Bilirubin 0.6 mg/dL (0.2-1.0) 06/08/19 05:41 AST 37 U/L (15-37) 06/08/19 05:41 ALT 40 U/L (12-78) 06/08/19 05:41 Alkaline Phosphatase 63 U/L (45-117) 06/08/19 05:41 Home Medications: Amlodipine [Norvasc*] 5 mg PO [id number] 03/29/19 Aspirin [Aspirin EC 81 MG] 81 mg PO DAILY 03/29/19 Carvedilol [Coreg*] 3.125 mg PO BID 03/29/19 Lisinopril 40 mg PO [id number] 03/29/19 Tamsulosin [Flomax*] 0.4 mg PO DAILY 30 Days #30 cap 06/09/19 New Medications: Tamsulosin [Flomax*] 0.4 mg PO DAILY 30 Days #30 cap Diet: Regular Time spent managing pt's care (in minutes): 55
== END 2019-06-09 12:46 | disposition hospice, home (50) | DRG 193 ==
LOC: ER 07:59 → ERHOLD 11:40 → 2ND 12:54 → OBSVTOIN 06-04 11:58
PROVIDERS: ADMIT Family Medicine; ATTEND Family Medicine
DX: J18.9 Pneumonia, unspecified organism (principal); S72.009A Fracture of unspecified part of neck of unspecified femur, initial encounter for closed fracture; G92 Toxic encephalopathy; N13.30 Unspecified hydronephrosis; I10 Essential (primary) hypertension; E78.5 Hyperlipidemia, unspecified; W18.30XA Fall on same level, unspecified, initial encounter; Y92.009 Unspecified place in unspecified non-institutional (private) residence as the place of occurrence of the external cause; C44.42 Squamous cell carcinoma of skin of scalp and neck; I51.7 Cardiomegaly; R31.9 Hematuria, unspecified; R19.00 Intra-abdominal and pelvic swelling, mass and lump, unspecified site; C67.9 Malignant neoplasm of bladder, unspecified
CPT/HCPCS: 36415; 70450; 71045; 71250; 73521; 74176; 80048; 80053; 80076; 81003; 81015; 82550; 83735; 83880; 84100; 84132; 84484; 85025; 85610; 87040; 87086; 87088; 92610; 93005; 93306; 93880; 94640; 96374; 97116; 97162; 97530; 99285; G0378; J0456; J0696; J2543; J7030